=== PATIENT | female | born 1975 | race Caucasian/White ===

== ENCOUNTER 2016-05-12 20:56 | Emergency (ER) | payer SELFPAY ==
[~2016-05-12] VITALS: Ht 177.8 cm; Wt 75.0 kg
[~2016-05-12 20:56] MED LIST: AZIT250T3 PO; PRED20 PO; VENTAER INH
[2016-05-12 21:16] VITALS: BP 130/60; PULSE 80; RESP 18; TEMP 98.7; O2SAT 100
[2016-05-12 21:52] VITALS: BP 99/54; PULSE 79; RESP 16; TEMP 97.4; O2SAT 94
[2016-05-12] MEDS ORDERED: RESP: ALBUTEROL 2.5 MG/3 ML NEB (SCH) INH ONE (22:15)
[2016-05-12 22:52] LABS: AUTOMATED NEUTROPHIL # 3.5 TH/MM3 (1.8-7.7); BASOPHIL # 0.1 TH/MM3 (0-0.2); BASOPHIL % 1.3 % (0.0-2.0); EOSINOPHIL % 0.5 % (0.0-4.0); HEMATOCRIT 33.8 % (35.0-46.0); HEMO FLAGS DIFF FINAL; LYMPH % 32.5 % (9.0-44.0); MEAN CELL VOLUME 112.3 FL (80.0-100.0); MEAN CORPUSCULAR HEMOGLOBIN 37.8 PG (27.0-34.0); MEAN CORPUSCULAR HGB CONC 33.7 % (32.0-36.0); MONO % 7.5 % (0.0-8.0); NEUT % 58.2 % (16.0-70.0); PLATELET COUNT 211 TH/MM3 (150-450); RED BLOOD COUNT 3.01 MIL/MM3 (4.00-5.30); WHITE BLOOD COUNT 6.1 TH/MM3 (4.0-11.0)
[2016-05-12 23:21] LABS: ALT (GPT) 88 U/L (10-53); ANION GAP 11 MEQ/L (5-15); AST (GOT) 270 U/L (15-37); BICARBONATE 24.3 MEQ/L (21.0-32.0); BLOOD UREA NITROGEN 5 MG/DL (7-18); CHLORIDE 101 MEQ/L (98-107); GLOMERULAR FILTRATION RATE 128 ML/MIN (>89); POTASSIUM 3.4 MEQ/L (3.5-5.1); SODIUM (NA) 136 MEQ/L (136-145)
[2016-05-12 23:23] LABS: ALKALINE PHOSPHATASE 189 U/L (45-117); TOTAL BILIRUBIN ADULT 0.5 MG/DL (0.2-1.0)
--- NOTE | 2016-05-12 23:53 | PD ---
HPI Chief Complaint: Alcohol/Drug Intoxication Time Seen by Provider: 20:00 Travel History International Travel<30 days: No Contact w/Intl Traveler<30days: No Traveled to known affect area: No History of Present Illness HPI 41-year-old female brought in by police with acute EtOH intoxication. Patient has no complaints of pain or other symptoms. Patient states she had too many shots today. Patient is not suicidal or homicidal. She is only complaint is of mild shortness of breath that she is out of her inhaler. Patient has a history of mild asthma. 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 PFSH Past Medical History Arthritis: No Asthma: Yes Blood Disorders: No Anxiety: Yes Depression: Yes Heart Rhythm Problems: Yes (tacycardia) Cancer: No Cardiovascular Problems: Yes (vena cava filter) High Cholesterol: No Chemotherapy: No Chest Pain: No Congestive Heart Failure: No COPD: Yes Cerebrovascular Accident: No Diabetes: No Diminished Hearing: No Deep Vein Thrombosis: Yes Endocrine: No Gastrointestinal Disorders: No GERD: Yes Glaucoma: No Genitourinary: Yes (had kidney problems related to vancomycin allergy ) Headaches: No Hypertension: Yes Immune Disorder: No Implanted Vascular Access Dvce: Yes Musculoskeletal: Yes (ORTHOPEDIC HARDWARE RIGHT ARM, LEFT LEG, LEFT FOOT DROP) Neurologic: Yes Psychiatric: Yes Reproductive: No Respiratory: Yes (EMPHYSEMA ) Immunizations Current: Yes Migraines: No Radiation Therapy: No Renal Failure: Yes (WHILE RECEIVING VANCO AT HOME) Seizures: Yes Sleep Apnea: No Thyroid Disease: No ?: Not Menopausal: Yes : 3 Para: 2 : 1 Tubal Ligation: Yes Past Surgical History Abdominal Surgery: No Body Medical Devices: VENA CAVA FILTER REMOVED 2009, ORTHOPEDIC HARDWARE IN LEGS AND RIGHT ARM Cardiac Surgery: No Ear Surgery: No Endocrine Surgery: No Eye Surgery: No Genitourinary Surgery: No Gynecologic Surgery: Yes (TUBAL LIGATION) Neurologic Surgery: No Oral Surgery: No Pacemaker: No Thoracic Surgery: No Other Surgery: Yes ( ORTHOPEDIC HARDWARE LEGS, ORIF PELVIS, R FEMUR) Social History Alcohol Use: Yes (OCCASIONAL, 12/02/15) Tobacco Use: Yes (2 PPD) Substance Use: Yes (marijuana ) Allergies-Medications (Allergen,Severity, Reaction): Coded Allergies: Vancomycin (Verified Allergy, Severe, 05/12/16) *MDRO Multi-Drug Resistant Organism (Verified Adverse Reaction, Unknown, ) MDR Pseudomonas aeruginosa (leg wound) - 2006; 2007 Reported Meds & Prescriptions Reported Meds & Active Scripts Active Ventolin Hfa 18 GM Inh (Albuterol Sulfate) 90 Mcg/Act Aer 2 Puff INH Q4-6H PRN Review of Systems Except as stated in HPI: all other systems reviewed are Neg General / Constitutional: No: Fever Eyes: No: Visual changes HENT: No: Headaches Cardiovascular: No: Chest Pain or Discomfort Respiratory: No: Shortness of Breath Gastrointestinal: No: Abdominal Pain Genitourinary: No: Dysuria Musculoskeletal: No: Pain Skin: No Rash Neurologic: No: Weakness Psychiatric: No: Depression Endocrine: No: Polydipsia Hematologic/Lymphatic: No: Easy Bruising Physical Exam Narrative GENERAL: Patient appears pleasantly intoxicated. SKIN: Warm and dry. Normal color. Normal turgor. HEAD: Atraumatic. Normocephalic. EYES: Pupils equal and round. No scleral icterus. No injection or drainage. ENT: No nasal bleeding or discharge. Mucous membranes pink and moist. Pharynx is normal. NECK: Trachea midline. No JVD. CARDIOVASCULAR: Regular rate and rhythm. RESPIRATORY: No accessory muscle use. Clear to auscultation. Breath sounds equal bilaterally. GASTROINTESTINAL: Abdomen soft, non-tender, nondistended. Hepatic and splenic margins not palpable. MUSCULOSKELETAL: Extremities without clubbing, cyanosis, or edema. No obvious deformities. NEUROLOGICAL: Awake and alert. No obvious cranial nerve deficits. Motor grossly within normal limits. Five out of 5 muscle strength in the arms and legs. Normal speech. PSYCHIATRIC: Appropriate mood and affect; insight and judgment normal. Data Data Last Documented VS Vital Signs Date Time Temp Pulse Resp B/P Pulse Ox O2 Delivery O2 Flow Rate FiO2 05/12/16 21:52 97.4 79 16 99/54 94 Room Air Orders Complete Blood Count With Diff (05/12/16 21:40) Comprehensive Metabolic Panel (05/12/16 21:40) Drug Screen, Random Urine (05/12/16 21:40) Alcohol (Ethanol) (05/12/16 21:40) Albuterol Neb (Albuterol Neb) (05/12/16 22:15) Labs Laboratory Tests Test 05/12/16 22:21 White Blood Count 6.1 TH/MM3 Red Blood Count 3.01 MIL/MM3 Hemoglobin 11.4 GM/DL Hematocrit 33.8 % Mean Corpuscular Volume 112.3 FL Mean Corpuscular Hemoglobin 37.8 PG Mean Corpuscular Hemoglobin 33.7 % Concent Red Cell Distribution Width 14.0 % Platelet Count 211 TH/MM3 Mean Platelet Volume 8.7 FL Neutrophils (%) (Auto) 58.2 % Lymphocytes (%) (Auto) 32.5 % Monocytes (%) (Auto) 7.5 % Eosinophils (%) (Auto) 0.5 % Basophils (%) (Auto) 1.3 % Neutrophils # (Auto) 3.5 TH/MM3 Lymphocytes # (Auto) 2.0 TH/MM3 Monocytes # (Auto) 0.5 TH/MM3 Eosinophils # (Auto) 0.0 TH/MM3 Basophils # (Auto) 0.1 TH/MM3 CBC Comment DIFF FINAL Differential Comment Sodium Level 136 MEQ/L Potassium Level 3.4 MEQ/L Chloride Level 101 MEQ/L Carbon Dioxide Level 24.3 MEQ/L Anion Gap 11 MEQ/L Blood Urea Nitrogen 5 MG/DL Creatinine 0.53 MG/DL Estimat Glomerular Filtration 128 ML/MIN Rate Random Glucose 80 MG/DL Calcium Level 8.1 MG/DL Total Bilirubin 0.5 MG/DL Aspartate Amino Transf 270 U/L (AST/SGOT) Alanine Aminotransferase 88 U/L (ALT/SGPT) Alkaline Phosphatase 189 U/L Total Protein 7.5 GM/DL Albumin 3.2 GM/DL Ethyl Alcohol Level 280 MG/DL MDM Medical Decision Making Medical Screen Exam Complete: Yes Emergency Medical Condition: Yes Differential Diagnosis EtOH intoxication. Asthma. Wheezing. Narrative Course Patient appears medically stable at time of exam. Labs ordered including CBC CMP and EtOH level. Patient is given 1 dose of albuterol nebulizer with improvement. EtOH level comes back at 280. Patient is to remain in the emergency department until sober. Diagnosis Primary Impression: Alcohol intoxication Qualified Code: F10.120 - Alcohol intoxication, uncomplicated Referrals: [facility] Patient Instructions: General Instructions Med/Other Pt SpecificInfo: No Meds Exist/No RX given Disposition: 01 DISCHARGE HOME Condition: Stable Billy Cavazos May 12, 2016 23:53
[2016-05-13] VITALS: BP 97/53; PULSE 71; RESP 16; O2SAT 95
[2016-05-13 01:18] LABS: AMPHETAMINE, URINE NEG (NEG); BARBITURATES, URINE NEG (NEG); COCAINE, URINE NEG (NEG)
[2016-05-13 05:00] VITALS: PULSE 68; RESP 14; O2SAT 96
== END 2016-05-13 07:14 | disposition home or self-care (01) ==
LOC: NEPA 20:56
DX: F10.129 Alcohol abuse with intoxication, unspecified (principal); F17.210 Nicotine dependence, cigarettes, uncomplicated; F12.90 Cannabis use, unspecified, uncomplicated; J45.909 Unspecified asthma, uncomplicated; J44.9 Chronic obstructive pulmonary disease, unspecified; K21.9 Gastro-esophageal reflux disease without esophagitis; I10 Essential (primary) hypertension
CPT/HCPCS: 80053; 80307; 80320; 85025; 94664; 99285; J7613

== ENCOUNTER 2016-09-22 22:47 | Emergency (ER) | payer OTHER ==
[~2016-09-22] VITALS: Ht 167.6 cm; Wt 62.0 kg
[~2016-09-22 22:47] MED LIST changes: -AZIT250T3 PO; -PRED20 PO
[2016-09-22 22:54] VITALS: BP 107/57; PULSE 85; RESP 20; TEMP 98.6; O2SAT 100
[2016-09-22] MEDS ORDERED: SODIUM CHLOR 0.9% 1000 ML INJ 1,000 ML IV SCH (22:59)
[2016-09-22] MEDS ORDERED: THIAMINE INJ 100 MG in SODIUM CHLORIDE 0.9% INJ 100 ML IV ONE (23:00)
[2016-09-22] MEDS ORDERED: SODIUM CHLORIDE 0.9% FLUSH 5 ML FLUSH IV FLUSH PRN (23:00)
--- NOTE | 2016-09-22 23:17 | PD ---
HPI Chief Complaint: Alcohol/Drug Intoxication Time Seen by Provider: 22:57 Travel History International Travel<30 days: No Contact w/Intl Traveler<30days: No Traveled to known affect area: No History of Present Illness HPI Patient is a 41-year-old female presents emergency Department at [facility]. She has multiple presentations to this emergency department for alcohol intoxication. Patient on arrival is ambulating with her pants lowered. She is escorted by police officers. She is very intoxicated on arrival smells heavily of alcohol. No evidence of trauma on her person. The railroad police states that he was doing a routine sweep of an area and found her sleeping and passed out ultimately she was able to be semi-aroused and was brought here in a [facility] for alcohol intoxication. Patient on arrival is unable to give further history at this time. PFSH Past Medical History Arthritis: No Asthma: Yes Blood Disorders: No Anxiety: Yes Depression: Yes Heart Rhythm Problems: Yes (tacycardia) Cancer: No Cardiovascular Problems: Yes (vena cava filter) High Cholesterol: No Chemotherapy: No Chest Pain: No Congestive Heart Failure: No COPD: Yes Cerebrovascular Accident: No Diabetes: No Diminished Hearing: No Deep Vein Thrombosis: Yes Endocrine: No Gastrointestinal Disorders: No GERD: Yes Glaucoma: No Genitourinary: Yes (had kidney problems related to vancomycin allergy ) Headaches: No Hypertension: Yes Immune Disorder: No Implanted Vascular Access Dvce: Yes Musculoskeletal: Yes (ORTHOPEDIC HARDWARE RIGHT ARM, LEFT LEG, LEFT FOOT DROP) Neurologic: Yes Psychiatric: Yes Reproductive: No Respiratory: Yes (EMPHYSEMA ) Immunizations Current: Yes Migraines: No Radiation Therapy: No Renal Failure: Yes (WHILE RECEIVING VANCO AT HOME) Seizures: Yes Sleep Apnea: No Thyroid Disease: No ?: Unknown Menopausal: Yes : 3 Para: 2 : 1 Tubal Ligation: Yes Past Surgical History Abdominal Surgery: No Body Medical Devices: VENA CAVA FILTER REMOVED 2010, ORTHOPEDIC HARDWARE IN LEGS AND RIGHT ARM Cardiac Surgery: No Ear Surgery: No Endocrine Surgery: No Eye Surgery: No Genitourinary Surgery: No Gynecologic Surgery: Yes (TUBAL LIGATION) Neurologic Surgery: No Oral Surgery: No Pacemaker: No Thoracic Surgery: No Other Surgery: Yes ( ORTHOPEDIC HARDWARE LEGS, ORIF PELVIS, R FEMUR) Social History Alcohol Use: Yes (Excessive) Tobacco Use: Yes (1/2 PPD) Substance Use: Yes (marijuana ) Allergies-Medications (Allergen,Severity, Reaction): Coded Allergies: Vancomycin (Verified Allergy, Severe, 05/12/16) *MDRO Multi-Drug Resistant Organism (Verified Adverse Reaction, Unknown, ) MDR Pseudomonas aeruginosa (leg wound) - 2006; 2007 Reported Meds & Prescriptions Reported Meds & Active Scripts Active Ventolin Hfa 18 GM Inh (Albuterol Sulfate) 90 Mcg/Act Aer 2 Puff INH Q4-6H PRN Review of Systems Except as stated in HPI: all other systems reviewed are Neg Physical Exam Narrative GENERAL: Well-developed well-nourished heavy smell of alcohol, somnolent. SKIN: Focused skin assessment warm/dry. Evidence of prior trauma to the lower extremity as evidenced by skin graft. No bruising or lacerations seen on her person. Patient was examined with female nurse it infrastructure consultant present at all times. HEAD: Atraumatic. Normocephalic. EYES: Pupils equal and round. No scleral icterus. No injection or drainage. ENT: No nasal bleeding or discharge. Mucous membranes pink and moist. NECK: Trachea midline. No JVD. CARDIOVASCULAR: Regular rate and rhythm. No murmur appreciated. RESPIRATORY: No accessory muscle use. Clear to auscultation. Breath sounds equal bilaterally. GASTROINTESTINAL: Abdomen soft, non-tender, nondistended. Hepatic and splenic margins not palpable. MUSCULOSKELETAL: No obvious deformities. No clubbing. No cyanosis. No edema. NEUROLOGICAL: Awake and alert. Follows commands in all 4 extremities, somnolent , overall GCS [id number]. PSYCHIATRIC: Appropriate mood and affect; insight and judgment normal. Data Data Last Documented VS Vital Signs Date Time Temp Pulse Resp B/P Pulse Ox O2 Delivery O2 Flow Rate FiO2 09/23/16 05:35 85 16 96 Room Air 09/23/16 00:11 111/76 09/22/16 22:54 98.6 Orders Basic Metabolic Panel (Bmp) (09/22/16 22:59) Complete Blood Count With Diff (09/22/16 22:59) Blood Glucose (09/22/16 22:59) Ecg Monitoring (09/22/16 22:59) Iv Access Insert/Monitor (09/22/16 22:59) Oximetry (09/22/16 22:59) Sodium Chloride 0.9% Flush (Ns Flush) (09/22/16 23:00) Sodium Chlor 0.9% 1000 Ml Inj (Ns 1000 M (09/22/16 22:59) Thiamine Inj (Thiamine Inj) (09/22/16 23:00) Alcohol (Ethanol) (09/22/16 22:59) Labs Laboratory Tests Test 09/22/16 09/23/16 23:28 00:39 White Blood Count 6.9 TH/MM3 Red Blood Count 3.64 MIL/MM3 Hemoglobin 13.3 GM/DL Hematocrit 38.0 % Mean Corpuscular Volume 104.2 FL Mean Corpuscular Hemoglobin 36.4 PG Mean Corpuscular Hemoglobin 34.9 % Concent Red Cell Distribution Width 13.3 % Platelet Count 138 TH/MM3 Mean Platelet Volume 8.3 FL Neutrophils (%) (Auto) 36.7 % Lymphocytes (%) (Auto) 55.9 % Monocytes (%) (Auto) 6.2 % Eosinophils (%) (Auto) 0.5 % Basophils (%) (Auto) 0.7 % Neutrophils # (Auto) 2.5 TH/MM3 Lymphocytes # (Auto) 3.9 TH/MM3 Monocytes # (Auto) 0.4 TH/MM3 Eosinophils # (Auto) 0.0 TH/MM3 Basophils # (Auto) 0.0 TH/MM3 CBC Comment DIFF FINAL Differential Comment Sodium Level 148 MEQ/L Potassium Level 3.8 MEQ/L Chloride Level 112 MEQ/L Carbon Dioxide Level 28.8 MEQ/L Anion Gap 7 MEQ/L Blood Urea Nitrogen 9 MG/DL Creatinine 0.67 MG/DL Estimat Glomerular Filtration 97 ML/MIN Rate Random Glucose 81 MG/DL Calcium Level 8.2 MG/DL Ethyl Alcohol Level 338 MG/DL [facility] Medical Decision Making Medical Screen Exam Complete: Yes Emergency Medical Condition: Yes Differential Diagnosis Alcohol intoxication, dehydration, altered mental status. Narrative Course Patient was roomed in emergency department, appears to be heavily intoxicated. Basic labs were drawn to confirm her intoxication status. Otherwise she will be allowed to sleep it off in the emergency department and on nursing assessment if clinically sober can be discharged. Diagnosis Primary Impression: Alcohol intoxication Disposition: 01 DISCHARGE HOME Condition: Stable Jasiel Ruiz MD September 22, 2016 23:17
[2016-09-22 23:44] LABS: AUTOMATED NEUTROPHIL # 2.5 TH/MM3 (1.8-7.7); BASOPHIL % 0.7 % (0.0-2.0); EOSINOPHIL % 0.5 % (0.0-4.0); HEMO FLAGS DIFF FINAL; LYMPH % 55.9 % (9.0-44.0); LYMPHOCYTE # 3.9 TH/MM3 (1.0-4.8); MEAN CELL VOLUME 104.2 FL (80.0-100.0); MEAN CORPUSCULAR HEMOGLOBIN 36.4 PG (27.0-34.0); MEAN CORPUSCULAR HGB CONC 34.9 % (32.0-36.0); MONO % 6.2 % (0.0-8.0); NEUT % 36.7 % (16.0-70.0); PLATELET COUNT 138 TH/MM3 (150-450); RED BLOOD COUNT 3.64 MIL/MM3 (4.00-5.30); RED CELL DISTRIBUTION WIDTH 13.3 % (11.6-17.2); WHITE BLOOD COUNT 6.9 TH/MM3 (4.0-11.0)
[2016-09-23 00:09] VITALS: O2SAT 97
[2016-09-23 00:11] VITALS: BP 111/76; PULSE 98; RESP 18; O2SAT 97
[2016-09-23 01:33] LABS: BICARBONATE 28.8 MEQ/L (21.0-32.0); POTASSIUM 3.8 MEQ/L (3.5-5.1)
[2016-09-23 05:35] VITALS: PULSE 85; RESP 16; O2SAT 96
== END 2016-09-23 06:45 | disposition home or self-care (01) ==
LOC: NEPD 22:47
DX: F10.129 Alcohol abuse with intoxication, unspecified (principal); Y90.8 Blood alcohol level of 240 mg/100 ml or more
CPT/HCPCS: 80048; 80307; 85025; 96365; 96366; 99284; J3411; J7030